=== PATIENT | male | born 1970 | race Caucasian/White ===

== ENCOUNTER 2016-07-29 10:21 | Inpatient (IN) | payer MEDICARE, MEDICAID ==
[~2016-07-29] VITALS: Ht 172.7 cm; Wt 80.5 kg
[~2016-07-29 10:21] MED LIST: GABA-531 PO; OLAN7.5T2 PO; VITAD1000 PO
[2016-07-29] MEDS ORDERED: LORazepam 2 MG TABLET PO PRN (11:30)
[2016-07-29] MEDS ORDERED: HALOPERIDOL 5 MG TABLET PO PRN (11:30)
[2016-07-29] MEDS ORDERED: ZOLPIDEM TARTRATE 10 MG TABLET PO PRN (11:30)
[2016-07-29 11:57] VITALS: BP 117/63
[2016-07-29] MEDS ORDERED: PNEUMOCOCCAL VACCINE POLYVALENT 0.5 ML VIAL [PPSV23] IM ONE (12:30)
[2016-07-29 13:18] VITALS: BP 114/68
[2016-07-29 16:10] VITALS: BP 102/62
[2016-07-29] MEDS: OLANZapine 10 MG TABLET PO SCH (21:05)
[2016-07-30 02:52] VITALS: BP 114/75
[2016-07-30 08:22] VITALS: BP 115/72
[2016-07-30] MEDS ORDERED: ALBUTEROL SULFATE HFA 90 MCG/PUFF 8 GM INHALER IH PRN (08:45)
[2016-07-30] MEDS ORDERED: PETROLATUM,WHITE 71 GM JELLY TP PRN (08:45)
[2016-07-30] MEDS ORDERED: DiphenhydrAMINE HCL 25 MG CAPSULE PO PRN (08:45)
[2016-07-30] MEDS ORDERED: CloNIDine HCL 0.1 MG TABLET PO PRN (08:45)
[2016-07-30] MEDS ORDERED: HYDROCORTISONE 0.5% 30 GM CREAM TP PRN (08:45)
[2016-07-30] MEDS ORDERED: MAGNESIUM HYDROXIDE SUSPENSION 30 ML UDCUP PO PRN (08:45)
[2016-07-30] MEDS ORDERED: ONDANSETRON HCL 4 MG TABLET PO PRN (08:45)
[2016-07-30] MEDS ORDERED: BACITRACIN 28.4 GM OINTMENT TP PRN (08:45)
[2016-07-30] MEDS ORDERED: IBUPROFEN 600 MG TABLET PO PRN (08:45)
[2016-07-30] MEDS ORDERED: ACETAMINOPHEN 325 MG TABLET PO PRN (08:45)
[2016-07-30] MEDS ORDERED: LOPERAMIDE HCL 2 MG CAPSULE PO PRN (08:45)
[2016-07-30] MEDS ORDERED: MAG HYDROX/AL HYDROX/SIMETH ES 30 ML SUSPENSION UDCUP PO PRN (08:45)
[2016-07-30] MEDS ORDERED: BENZOCAINE/MENTHOL LOZENGE MM PRN (08:45)
[2016-07-30 08:47] LABS: APPEARANCE,URINE CLEAR (CLEAR); GLUCOSE, URINE (UA) NEGATIVE (NEGATIVE); KETONES,URINE NEGATIVE (NEGATIVE); LEUKOCYTE ESTERASE ,URINE NEGATIVE (NEGATIVE); OCCULT BLOOD,URINE NEGATIVE (NEGATIVE); PH,URINE 5.5 (5.0-8.0); PROTEIN,URINE NEGATIVE (NEGATIVE)
[2016-07-30 08:48] LABS: ADD UA MICROSCOPIC NO
[2016-07-30] MEDS: FISH OIL/OMEGA-3 FATTY ACIDS 500 MG CAPSULE PO SCH (09:00)
[2016-07-30] MEDS: CHOLECALCIFEROL (VIT D3) 1,000 UNITS TABLET PO SCH (09:00)
[2016-07-30] MEDS: OLANZapine 10 MG TABLET PO SCH (20:48)
[2016-07-31 00:51] VITALS: BP 103/70
[2016-07-31 08:22] LABS: BASOPHILS % (AUTO) 0.5 % (0.0-2.0); EOSINOPHILS % (AUTO) 3.5 % (1.0-6.0); HEMATOCRIT 49.3 % (41-53); HEMOGLOBIN 16.5 g/dL (13.5-17.5); LYMPHOCYTES # (AUTO) 1.9 K/uL (1.0-4.8); LYMPHOCYTES % (AUTO) 29.1 % (22.0-44.0); MEAN CORPUSCULAR HEMOGLOBIN 31.1 pg (26.0-34.0); MEAN CORPUSCULAR HGB CONC 33.4 G/dL (31.0-37.0); MEAN CORPUSCULAR VOLUME 93 fL (80-100); MONOCYTES # (AUTO) 0.4 K/uL (0.1-1.0); MONOCYTES % (AUTO) 6.5 % (2.0-9.0); NEUTROPHILS # (AUTO) 3.9 K/uL (1.8-7.7); NEUTROPHILS % (AUTO) 60.4 % (40.0-70.0); PLATELET COUNT (AUTO) 316 K/uL (150-450); RED BLOOD CELL COUNT(AUTO) 5.29 MIL/uL (4.50-5.90); RED CELL DISTRIBUTION WIDTH 14.5 % (11.5-14.5); WHITE BLOOD COUNT (AUTO) 6.4 K/uL (4.5-11.0)
[2016-07-31 08:58] LABS: ALANINE AMINOTRANSFERASE 28 U/L (12-78); ALBUMIN 3.9 g/dL (3.4-5.0); ANION GAP 7 mmol/L (8-16); ASPARTATE AMINOTRANSFERASE 13 U/L (15-37); BILIRUBIN,TOTAL 0.2 mg/dL (0.1-1.0); CALCIUM, TOTAL 9.3 mg/dL (8.8-10.5); CARBON DIOXIDE 27 mmol/L (22-29); CHLORIDE 100 mmol/L (98-107); CHOL/HDL RATIO 4.5 (4.2-7.3); CREATININE 0.92 mg/dL (0.60-1.30); GLOMERULAR FILTR. RATE CALC > 60 mL/min (>60); POTASSIUM 4.8 mmol/L (3.5-5.1); SODIUM SERUM 134 mmol/L (136-145); THYROID STIMULATING HORMONE 1.44 uIU/mL (0.36-3.74); TOTAL PROTEIN, SERUM 7.2 g/dL (6.4-8.2); UREA NITROGEN, BLOOD 18 mg/dL (7-18)
[2016-07-31] MEDS: FISH OIL/OMEGA-3 FATTY ACIDS 500 MG CAPSULE PO SCH (09:04)
[2016-07-31] MEDS: CHOLECALCIFEROL (VIT D3) 1,000 UNITS TABLET PO SCH (09:04)
[2016-07-31 16:11] VITALS: BP 114/70
[2016-07-31] MEDS: OLANZapine 10 MG TABLET PO SCH (20:36)
[2016-08-01 01:24] VITALS: BP 110/80
[2016-08-01] MEDS: SODIUM CHLORIDE 1 GM TABLET PO SCH ×3 (08:17→16:52)
[2016-08-01] MEDS: FISH OIL/OMEGA-3 FATTY ACIDS 500 MG CAPSULE PO SCH (08:17)
[2016-08-01] MEDS: CHOLECALCIFEROL (VIT D3) 1,000 UNITS TABLET PO SCH (08:17)
[2016-08-01 16:15] VITALS: BP 117/64
[2016-08-01] MEDS: OLANZapine 10 MG TABLET PO SCH (20:52)
[2016-08-02 01:20] VITALS: BP 114/75
[2016-08-02 08:47] VITALS: BP 113/69
[2016-08-02] MEDS: SODIUM CHLORIDE 1 GM TABLET PO SCH ×3 (09:00→16:18)
[2016-08-02] MEDS: FISH OIL/OMEGA-3 FATTY ACIDS 500 MG CAPSULE PO SCH (09:02)
[2016-08-02] MEDS: CHOLECALCIFEROL (VIT D3) 1,000 UNITS TABLET PO SCH (09:02)
[2016-08-02 16:26] VITALS: BP 110/75
[2016-08-02] MEDS: OLANZapine 10 MG TABLET PO SCH (20:21)
[2016-08-03 04:21] VITALS: BP 112/86
[2016-08-03 08:10] VITALS: BP 113/67
[2016-08-03] MEDS: CHOLECALCIFEROL (VIT D3) 1,000 UNITS TABLET PO SCH (09:00)
[2016-08-03] MEDS: FISH OIL/OMEGA-3 FATTY ACIDS 500 MG CAPSULE PO SCH (09:00)
[2016-08-03] MEDS: SODIUM CHLORIDE 1 GM TABLET PO SCH ×3 (09:00→16:43)
[2016-08-03 16:15] VITALS: BP 109/73
[2016-08-03] MEDS ORDERED: OLAN10TA3 PO (19:45)
[2016-08-03] MEDS ORDERED: OMEG-12 PO (19:46)
[2016-08-03] MEDS ORDERED: NACL1 PO (19:47)
[2016-08-03] MEDS: OLANZapine 10 MG TABLET PO SCH (20:34)
[2016-08-04 00:33] VITALS: BP 101/64
[2016-08-04 05:09] VITALS: BP 106/81
== END 2016-08-04 05:10 | disposition home or self-care (01) | DRG 885 ==
LOC: B2X 11:26 → EDSTATUS 11:51 → B2X 20:46
DX: F25.1 Schizoaffective disorder, depressive type (principal); R45.851 Suicidal ideations; E87.1 Hypo-osmolality and hyponatremia; K21.9 Gastro-esophageal reflux disease without esophagitis; J44.9 Chronic obstructive pulmonary disease, unspecified; E78.5 Hyperlipidemia, unspecified; E55.9 Vitamin D deficiency, unspecified; F17.200 Nicotine dependence, unspecified, uncomplicated; G47.00 Insomnia, unspecified; F15.10 Other stimulant abuse, uncomplicated; F19.10 Other psychoactive substance abuse, uncomplicated; L29.9 Pruritus, unspecified; Z71.6 Tobacco abuse counseling; E78.1 Pure hyperglyceridemia; Z91.5 Personal history of self-harm; Z59.0 Homelessness; Z72.89 Other problems related to lifestyle; Z71.41 Alcohol abuse counseling and surveillance of alcoholic; Z71.51 Drug abuse counseling and surveillance of drug abuser; Z79.899 Other long term (current) drug therapy; Z28.21 Immunization not carried out because of patient refusal
CPT/HCPCS: 82306; 84443

== ENCOUNTER 2017-02-27 17:26 | Inpatient (IN) | payer MEDICARE, MEDICAID ==
[~2017-02-27] VITALS: Ht 175.3 cm; Wt 80.7 kg
[~2017-02-27 17:26] MED LIST changes: -GABA-531 PO; +NACL1 PO; +OLAN10TA3 PO; -OLAN7.5T2 PO; +OMEG-12 PO
[2017-02-27 18:33] LABS: BASOPHILS # (AUTO) 0.06 K/uL (0.00-0.20); EOSINOPHILS # (AUTO) 0.17 K/uL (0.00-0.70); EOSINOPHILS % (AUTO) 2.56 % (1.0-6.0); HEMATOCRIT 45.7 % (41-53); HEMOGLOBIN 15.4 g/dL (13.5-17.5); LYMPHOCYTES # (AUTO) 1.3 K/uL (1.0-4.8); MEAN CORPUSCULAR HEMOGLOBIN 30.5 pg (26.0-34.0); MEAN CORPUSCULAR HGB CONC 33.8 G/dL (31.0-37.0); MEAN CORPUSCULAR VOLUME 90 fL (80-100); MONOCYTES # (AUTO) 0.6 K/uL (0.1-1.0); MONOCYTES % (AUTO) 8.5 % (2.0-9.0); NEUTROPHILS # (AUTO) 4.5 K/uL (1.8-7.7); PLATELET COUNT (AUTO) 259 K/uL (150-450); RED BLOOD CELL COUNT(AUTO) 5.06 MIL/uL (4.50-5.90); RED CELL DISTRIBUTION WIDTH 13.6 % (11.5-14.5)
[2017-02-27 18:37] LABS: ANION GAP 8 mmol/L (8-16); CALCIUM, TOTAL 9.3 mg/dL (8.8-10.5); CARBON DIOXIDE 30 mmol/L (22-29); CHLORIDE 98 mmol/L (98-107); CREATININE 1.21 mg/dL (0.60-1.30); GLOMERULAR FILTR. RATE CALC > 60 mL/min (>60); GLUCOSE,RANDOM 101 mg/dL (70-110); POTASSIUM 3.8 mmol/L (3.5-5.1); SODIUM SERUM 136 mmol/L (136-145); UREA NITROGEN, BLOOD 17 mg/dL (7-18)
[2017-02-27 18:45] LABS: ALANINE AMINOTRANSFERASE 55 U/L (12-78); ALBUMIN 4.2 g/dL (3.4-5.0); ALKALINE PHOSPHATASE 51 U/L (46-116); ASPARTATE AMINOTRANSFERASE 35 U/L (15-37); BILIRUBIN,TOTAL 0.7 mg/dL (0.1-1.0); TOTAL PROTEIN, SERUM 7.9 g/dL (6.4-8.2)
[2017-02-27] MEDS ORDERED: LORazepam 2 MG TABLET PO PRN (22:15)
[2017-02-27] MEDS ORDERED: HALOPERIDOL 5 MG TABLET PO PRN (22:15)
[2017-02-27 22:16] VITALS: BP 103/65
[2017-02-27] MEDS ORDERED: INFLUENZA VIRUS VACCINE QVS 2017-18 (3YR+)/PF 60 MCG/0.5 ML SYRINGE IM ONE (22:30)
[2017-02-28 07:39] LABS: CHOL/HDL RATIO 4.8 (4.2-7.3)
[2017-02-28 08:15] VITALS: BP 108/61
[2017-02-28 16:00] VITALS: BP 109/56
[2017-02-28] MEDS: OLANZapine 10 MG TABLET PO SCH (20:54)
[2017-02-28] MEDS ORDERED: CloNIDine HCL 0.1 MG TABLET PO PRN (23:00)
[2017-02-28] MEDS ORDERED: PETROLATUM,WHITE 71 GM JELLY TP PRN (23:00)
[2017-02-28] MEDS ORDERED: LOPERAMIDE HCL 2 MG CAPSULE PO PRN (23:00)
[2017-02-28] MEDS ORDERED: ACETAMINOPHEN 325 MG TABLET PO PRN (23:00)
[2017-02-28] MEDS ORDERED: MAG HYDROX/AL HYDROX/SIMETH ES 30 ML SUSPENSION UDCUP PO PRN (23:00)
[2017-02-28] MEDS ORDERED: ONDANSETRON HCL 4 MG TABLET PO PRN (23:00)
[2017-02-28] MEDS ORDERED: IBUPROFEN 600 MG TABLET PO PRN (23:00)
[2017-02-28] MEDS ORDERED: BACITRACIN 28.4 GM OINTMENT TP PRN (23:00)
[2017-02-28] MEDS ORDERED: MAGNESIUM HYDROXIDE SUSPENSION 30 ML UDCUP PO PRN (23:00)
[2017-02-28] MEDS ORDERED: ALBUTEROL SULFATE HFA 90 MCG/PUFF 8 GM INHALER IH PRN (23:00)
[2017-02-28] MEDS ORDERED: BENZOCAINE/MENTHOL LOZENGE [8 LOZENGES/PACKET] MM PRN (23:15)
[2017-03-01 00:50] VITALS: BP 106/73
[2017-03-01] MEDS: ZOLPIDEM TARTRATE 10 MG TABLET PO PRN (00:50)
[2017-03-01] MEDS: OMEPRAZOLE 20 MG CAPSULE PO SCH (09:00)
[2017-03-01] MEDS: DOCUSATE SODIUM 100 MG CAPSULE PO SCH (09:00)
[2017-03-01] MEDS: OLANZapine 10 MG TABLET PO SCH (22:11)
[2017-03-02 02:00] VITALS: BP 114/91
[2017-03-02] MEDS: ZOLPIDEM TARTRATE 10 MG TABLET PO PRN ×2 (02:01→21:31)
[2017-03-02] MEDS: OMEPRAZOLE 20 MG CAPSULE PO SCH (08:26)
[2017-03-02] MEDS: DOCUSATE SODIUM 100 MG CAPSULE PO SCH (08:26)
[2017-03-02] MEDS: OLANZapine 10 MG TABLET PO SCH (20:22)
[2017-03-02 20:42] VITALS: BP 95/59
[2017-03-03] MEDS: DOCUSATE SODIUM 100 MG CAPSULE PO SCH (08:58)
[2017-03-03] MEDS: OMEPRAZOLE 20 MG CAPSULE PO SCH (08:59)
[2017-03-03] MEDS: OLANZapine 10 MG TABLET PO SCH (20:15)
[2017-03-04 02:04] VITALS: BP 134/71
[2017-03-04] MEDS: ZOLPIDEM TARTRATE 10 MG TABLET PO PRN (02:04)
[2017-03-04] MEDS: OMEPRAZOLE 20 MG CAPSULE PO SCH (09:00)
[2017-03-04] MEDS: DOCUSATE SODIUM 100 MG CAPSULE PO SCH (09:00)
[2017-03-04] MEDS: OLANZapine 10 MG TABLET PO SCH (20:13)
[2017-03-05] MEDS: ZOLPIDEM TARTRATE 10 MG TABLET PO PRN (02:50)
[2017-03-05 02:53] VITALS: BP 122/71
[2017-03-05] MEDS: DOCUSATE SODIUM 100 MG CAPSULE PO SCH (09:00)
[2017-03-05] MEDS: OMEPRAZOLE 20 MG CAPSULE PO SCH (09:00)
[2017-03-05] MEDS ORDERED: OMEP20 PO (14:29)
[2017-03-05] MEDS ORDERED: DSS100 PO (14:29)
== END 2017-03-05 15:45 | disposition home or self-care (01) | DRG 885 ==
LOC: EMS 17:27 → 3EX 21:30
DX: F25.1 Schizoaffective disorder, depressive type (principal); R45.851 Suicidal ideations; Z59.0 Homelessness; E55.9 Vitamin D deficiency, unspecified; E78.1 Pure hyperglyceridemia; E78.5 Hyperlipidemia, unspecified; J44.9 Chronic obstructive pulmonary disease, unspecified; K21.9 Gastro-esophageal reflux disease without esophagitis; F31.9 Bipolar disorder, unspecified; F15.10 Other stimulant abuse, uncomplicated; G47.00 Insomnia, unspecified; K59.00 Constipation, unspecified; F17.210 Nicotine dependence, cigarettes, uncomplicated; Z91.14 Patient's other noncompliance with medication regimen; Z91.5 Personal history of self-harm; Z79.899 Other long term (current) drug therapy
CPT/HCPCS: 99285; G0480

== ENCOUNTER 2017-04-16 08:44 | Inpatient (IN) | payer MEDICARE, MEDICAID ==
[~2017-04-16] VITALS: Ht 175.3 cm; Wt 81.6 kg
[~2017-04-16 08:44] MED LIST changes: +DSS100 PO; -NACL1 PO; -OMEG-12 PO; +OMEP20 PO; -VITAD1000 PO
[2017-04-16 09:59] VITALS: BP 110/61
[2017-04-16] MEDS ORDERED: ZOLPIDEM TARTRATE 10 MG TABLET PO PRN (11:00)
[2017-04-16] MEDS ORDERED: LORazepam 2 MG TABLET PO PRN (11:00)
[2017-04-16 12:40] VITALS: BP 109/60
[2017-04-16 13:31] VITALS: BP 109/60
[2017-04-16 16:14] VITALS: BP 115/61
[2017-04-16] MEDS: OLANZapine 10 MG TABLET PO SCH (20:41)
[2017-04-17] VITALS: BP 116/74
[2017-04-17 08:30] VITALS: BP 121/75
[2017-04-17] MEDS: NICOTINE 14 MG/24 HOUR PATCH TD SCH (09:00)
[2017-04-17] MEDS ORDERED: ONDANSETRON HCL 4 MG TABLET PO PRN (09:00)
[2017-04-17] MEDS ORDERED: BACITRACIN 28.4 GM OINTMENT TP PRN (09:00)
[2017-04-17] MEDS ORDERED: MAGNESIUM HYDROXIDE SUSPENSION 30 ML UDCUP PO PRN (09:00)
[2017-04-17] MEDS ORDERED: LOPERAMIDE HCL 2 MG CAPSULE PO PRN (09:00)
[2017-04-17] MEDS ORDERED: IBUPROFEN 600 MG TABLET PO PRN (09:00)
[2017-04-17] MEDS ORDERED: ALBUTEROL SULFATE HFA 90 MCG/PUFF 8 GM INHALER IH PRN (09:00)
[2017-04-17] MEDS ORDERED: MAG HYDROX/AL HYDROX/SIMETH ES 30 ML SUSPENSION UDCUP PO PRN (09:00)
[2017-04-17] MEDS ORDERED: DiphenhydrAMINE HCL 25 MG CAPSULE PO PRN (09:00)
[2017-04-17] MEDS ORDERED: MINERAL OIL/PETROLATUM 120 GM CREAM TP PRN (09:00)
[2017-04-17] MEDS ORDERED: PETROLATUM,WHITE 71 GM JELLY TP PRN (09:00)
[2017-04-17] MEDS ORDERED: CloNIDine HCL 0.1 MG TABLET PO PRN (09:00)
[2017-04-17] MEDS ORDERED: ACETAMINOPHEN 325 MG TABLET PO PRN (09:00)
[2017-04-17] MEDS ORDERED: BENZOCAINE/MENTHOL LOZENGE MM PRN (09:00)
[2017-04-17 17:32] VITALS: BP 107/63
[2017-04-17] MEDS: OLANZapine 10 MG TABLET PO SCH (20:33)
[2017-04-18 01:52] VITALS: BP 105/69
[2017-04-18 08:20] VITALS: BP 104/71
[2017-04-18] MEDS: NICOTINE 14 MG/24 HOUR PATCH TD SCH (09:00)
[2017-04-18 16:22] VITALS: BP 106/62
[2017-04-18] MEDS: OLANZapine 10 MG TABLET PO SCH (20:22)
[2017-04-19] MEDS: NICOTINE 14 MG/24 HOUR PATCH TD SCH (08:57)
== END 2017-04-19 16:05 | disposition home or self-care (01) | DRG 885 ==
LOC: B2X 11:42
DX: F25.1 Schizoaffective disorder, depressive type (principal); R45.851 Suicidal ideations; F29 Unspecified psychosis not due to a substance or known physiological condition; E55.9 Vitamin D deficiency, unspecified; E78.5 Hyperlipidemia, unspecified; F15.10 Other stimulant abuse, uncomplicated; F32.9 Major depressive disorder, single episode, unspecified; F41.9 Anxiety disorder, unspecified; G47.00 Insomnia, unspecified; J44.9 Chronic obstructive pulmonary disease, unspecified; K21.9 Gastro-esophageal reflux disease without esophagitis; F17.200 Nicotine dependence, unspecified, uncomplicated; T23.009A Burn of unspecified degree of unspecified hand, unspecified site, initial encounter; X08.8XXA Exposure to other specified smoke, fire and flames, initial encounter; Z59.0 Homelessness; Y93.89 Activity, other specified; Y92.89 Other specified places as the place of occurrence of the external cause

== ENCOUNTER 2019-10-07 14:26 | Inpatient (IN) | payer MEDICARE, MEDICAID ==
[~2019-10-07] VITALS: Ht 175.3 cm; Wt 94.3 kg
[~2019-10-07 14:26] MED LIST changes: -DSS100 PO; -OMEP20 PO
[2019-10-07] MEDS ORDERED: QUET100T PO (14:32)
[2019-10-07] MEDS ORDERED: LORazepam 1 MG TABLET PO ONE (16:30)
[2019-10-07] MEDS ORDERED: QUEtiapine FUMARATE 100 MG TABLET PO ONE (16:30)
[2019-10-07 16:32] LABS: BASOPHILS % (AUTO) 0.7 % (0.0-2.0); EOSINOPHILS % (AUTO) 4.2 % (1.0-6.0); HEMATOCRIT 45.6 % (41-53); HEMOGLOBIN 15.1 g/dL (13.5-17.5); LYMPHOCYTES # (AUTO) 1.9 K/uL (1.0-4.8); LYMPHOCYTES % (AUTO) 32.1 % (22.0-44.0); MEAN CORPUSCULAR HEMOGLOBIN 29.5 pg (26.0-34.0); MEAN CORPUSCULAR HGB CONC 33.1 G/dL (31.0-37.0); MEAN CORPUSCULAR VOLUME 89 fL (80-100); MONOCYTES # (AUTO) 0.7 K/uL (0.1-1.0); MONOCYTES % (AUTO) 11.6 % (2.0-9.0); NEUTROPHILS % (AUTO) 51.4 % (40.0-70.0); PLATELET COUNT (AUTO) 240 K/uL (150-450); RED BLOOD CELL COUNT(AUTO) 5.12 MIL/uL (4.50-5.90); RED CELL DISTRIBUTION WIDTH 14.1 % (11.5-14.5)
[2019-10-07 16:39] LABS: ANION GAP 8 mmol/L (8-16); CALCIUM, TOTAL 9.5 mg/dL (8.8-10.5); CARBON DIOXIDE 27 mmol/L (22-29); CHLORIDE 102 mmol/L (98-107); CREATININE 1.21 mg/dL (0.60-1.30); GLOMERULAR FILTR. RATE CALC > 60 mL/min (>60); GLUCOSE,RANDOM 84 mg/dL (70-110); POTASSIUM 3.9 mmol/L (3.5-5.1); SODIUM SERUM 137 mmol/L (136-145); UREA NITROGEN, BLOOD 21 mg/dL (7-18)
[2019-10-07 16:45] LABS: ALANINE AMINOTRANSFERASE 44 U/L (12-78); ALBUMIN 4.5 g/dL (3.4-5.0); ALKALINE PHOSPHATASE 54 U/L (46-116); ASPARTATE AMINOTRANSFERASE 24 U/L (15-37); BILIRUBIN,TOTAL 0.6 mg/dL (0.1-1.0); TOTAL PROTEIN, SERUM 8.4 g/dL (6.4-8.2)
[2019-10-07] MEDS ORDERED: OLAN7.5T2 PO (16:48)
[2019-10-07] MEDS ORDERED: ChlorproMAZINE HCL 100 MG TABLET PO PRN (18:15)
[2019-10-07] MEDS ORDERED: LORazepam 1 MG TABLET PO PRN (18:15)
[2019-10-07] MEDS ORDERED: ZOLPIDEM TARTRATE 5 MG TABLET PO PRN (18:15)
[2019-10-07] MEDS: QUEtiapine FUMARATE 300 MG TABLET PO SCH (20:21)
[2019-10-07 20:53] VITALS: BP 122/82
[2019-10-08] MEDS ORDERED: ONDANSETRON HCL 4 MG TABLET PO PRN (06:45)
[2019-10-08] MEDS ORDERED: BENZOCAINE/MENTHOL LOZENGE MM PRN (06:45)
[2019-10-08] MEDS ORDERED: CloNIDine HCL 0.1 MG TABLET PO PRN (06:45)
[2019-10-08] MEDS ORDERED: BACITRACIN 28.4 GM OINTMENT TP PRN (06:45)
[2019-10-08] MEDS ORDERED: LOPERAMIDE HCL 2 MG CAPSULE PO PRN (06:45)
[2019-10-08] MEDS ORDERED: OMEPRAZOLE 20 MG CAPSULE PO PRN (06:45)
[2019-10-08] MEDS ORDERED: ACETAMINOPHEN 325 MG TABLET PO PRN (06:45)
[2019-10-08] MEDS ORDERED: DOCUSATE SODIUM 100 MG CAPSULE PO PRN (06:45)
[2019-10-08] MEDS ORDERED: ALBUTEROL SULFATE HFA 90 MCG/PUFF 8 GM INHALER IH PRN (06:45)
[2019-10-08] MEDS ORDERED: PETROLATUM,WHITE 28 GM JELLY TP PRN (06:45)
[2019-10-08] MEDS ORDERED: MAGNESIUM HYDROXIDE SUSPENSION 30 ML UDCUP PO PRN (06:45)
[2019-10-08] MEDS ORDERED: IBUPROFEN 600 MG TABLET PO PRN (06:45)
[2019-10-08] MEDS ORDERED: MAG HYDROX/AL HYDROX/SIMETH ES 30 ML SUSPENSION UDCUP PO PRN (06:45)
[2019-10-08] MEDS: QUEtiapine FUMARATE 25 MG TABLET PO SCH ×3 (07:54→16:10)
[2019-10-08 09:55] VITALS: BP 98/62
[2019-10-08 16:42] VITALS: BP 120/78
[2019-10-08] MEDS: QUEtiapine FUMARATE 300 MG TABLET PO SCH (20:15)
[2019-10-09] VITALS: BP 124/75
[2019-10-09] MEDS: QUEtiapine FUMARATE 25 MG TABLET PO SCH ×3 (08:05→16:09)
[2019-10-09 10:22] VITALS: BP 112/78
[2019-10-09 16:25] VITALS: BP 121/75
[2019-10-09] MEDS: QUEtiapine FUMARATE 300 MG TABLET PO SCH (20:22)
[2019-10-09] MEDS: GABAPENTIN 400 MG CAPSULE PO SCH (20:22)
[2019-10-10] MEDS: GABAPENTIN 400 MG CAPSULE PO SCH ×4 (08:08→20:46)
[2019-10-10] MEDS: QUEtiapine FUMARATE 25 MG TABLET PO SCH ×3 (08:08→16:30)
[2019-10-10 09:30] VITALS: BP 113/76
[2019-10-10] MEDS ORDERED: QUEtiapine FUMARATE 100 MG TABLET PO PRN (10:00)
[2019-10-10] MEDS ORDERED: GuaiFENesin/D-METHORPHAN [SUGAR-FREE] 200-20MG/10 ML SYRUP UDCUP PO PRN (10:00)
[2019-10-10] MEDS ORDERED: MAG HYDROX/AL HYDROX/SIMETH ES 30 ML SUSPENSION UDCUP PO PRN (10:00)
[2019-10-10] MEDS ORDERED: LOPERAMIDE HCL 2 MG CAPSULE PO PRN (10:00)
[2019-10-10] MEDS ORDERED: MAGNESIUM HYDROXIDE SUSPENSION 30 ML UDCUP PO PRN (10:00)
[2019-10-10] MEDS ORDERED: HydrOXYzine PAMOATE 50 MG CAPSULE PO PRN (10:00)
[2019-10-10] MEDS ORDERED: TUBERCULIN, PURIFIED PROTEIN DERIVATIVE 5 TU/0.1 ML SYRINGE ID ONE (10:00)
[2019-10-10] MEDS ORDERED: ACETAMINOPHEN 325 MG TABLET PO PRN (10:00)
[2019-10-10] MEDS ORDERED: PROMETHAZINE HCL 25 MG TABLET PO PRN (10:00)
[2019-10-10] MEDS: THIAMINE 100 MG TABLET PO SCH (16:30)
[2019-10-10 16:37] VITALS: BP 123/85
[2019-10-10] MEDS: QUEtiapine FUMARATE 300 MG TABLET PO SCH (20:46)
[2019-10-11 03:00] VITALS: BP 110/67
[2019-10-11] MEDS: QUEtiapine FUMARATE 25 MG TABLET PO SCH ×3 (07:59→16:26)
[2019-10-11] MEDS: MULTIVITAMINS WITH MINERALS, THERAPEUTIC TABLET PO SCH (07:59)
[2019-10-11] MEDS: GABAPENTIN 400 MG CAPSULE PO SCH ×4 (07:59→20:14)
[2019-10-11] MEDS: THIAMINE 100 MG TABLET PO SCH ×2 (07:59→16:27)
[2019-10-11] MEDS: FOLIC ACID 1 MG TABLET PO SCH (07:59)
[2019-10-11 09:00] VITALS: BP 93/59
[2019-10-11] MEDS ORDERED: NALTREXONE HCL 50 MG TABLET PO SCH (09:00)
[2019-10-11] MEDS: NALTREXONE HCL 50 MG TABLET PO SCH (13:25)
[2019-10-11 16:54] VITALS: BP 92/55
[2019-10-11] MEDS: QUEtiapine FUMARATE 300 MG TABLET PO SCH (20:14)
[2019-10-12 08:00] VITALS: BP 104/70
[2019-10-12] MEDS: MULTIVITAMINS WITH MINERALS, THERAPEUTIC TABLET PO SCH (08:37)
[2019-10-12] MEDS: GABAPENTIN 400 MG CAPSULE PO SCH ×3 (08:37→16:41)
[2019-10-12] MEDS: THIAMINE 100 MG TABLET PO SCH ×2 (08:38→16:43)
[2019-10-12] MEDS: FOLIC ACID 1 MG TABLET PO SCH (08:38)
[2019-10-12] MEDS: QUEtiapine FUMARATE 25 MG TABLET PO SCH ×3 (08:38→16:41)
[2019-10-12] MEDS: NALTREXONE HCL 50 MG TABLET PO SCH (08:39)
[2019-10-12 16:39] VITALS: BP 120/78
[2019-10-12] MEDS: QUEtiapine FUMARATE 200 MG TABLET PO SCH (20:16)
[2019-10-12] MEDS: GABAPENTIN 300 MG CAPSULE PO SCH (20:17)
[2019-10-13] MEDS: MULTIVITAMINS WITH MINERALS, THERAPEUTIC TABLET PO SCH (08:14)
[2019-10-13] MEDS: QUEtiapine FUMARATE 25 MG TABLET PO SCH ×3 (08:14→16:14)
[2019-10-13] MEDS: GABAPENTIN 300 MG CAPSULE PO SCH ×3 (08:14→16:14)
[2019-10-13] MEDS: FOLIC ACID 1 MG TABLET PO SCH (08:15)
[2019-10-13] MEDS: NALTREXONE HCL 50 MG TABLET PO SCH (08:15)
[2019-10-13] MEDS: THIAMINE 100 MG TABLET PO SCH ×2 (08:16→16:14)
[2019-10-13 09:58] VITALS: BP 98/54
[2019-10-13 16:44] VITALS: BP 121/77
[2019-10-13] MEDS: GABAPENTIN 400 MG CAPSULE PO SCH (20:08)
[2019-10-13] MEDS: QUEtiapine FUMARATE 200 MG TABLET PO SCH (20:08)
[2019-10-14] MEDS: NALTREXONE HCL 50 MG TABLET PO SCH (07:59)
[2019-10-14] MEDS: THIAMINE 100 MG TABLET PO SCH ×2 (07:59→16:41)
[2019-10-14] MEDS: FOLIC ACID 1 MG TABLET PO SCH (07:59)
[2019-10-14 08:00] VITALS: BP 102/75
[2019-10-14] MEDS: MULTIVITAMINS WITH MINERALS, THERAPEUTIC TABLET PO SCH (08:00)
[2019-10-14] MEDS: GABAPENTIN 400 MG CAPSULE PO SCH ×4 (08:00→21:04)
[2019-10-14] MEDS: QUEtiapine FUMARATE 25 MG TABLET PO SCH ×3 (08:00→16:41)
[2019-10-14 18:31] VITALS: BP 129/79
[2019-10-14] MEDS: QUEtiapine FUMARATE 200 MG TABLET PO SCH (21:50)
[2019-10-15] MEDS: MULTIVITAMINS WITH MINERALS, THERAPEUTIC TABLET PO SCH (08:16)
[2019-10-15] MEDS: THIAMINE 100 MG TABLET PO SCH ×2 (08:16→17:00)
[2019-10-15] MEDS: GABAPENTIN 400 MG CAPSULE PO SCH ×4 (08:16→21:43)
[2019-10-15] MEDS: FOLIC ACID 1 MG TABLET PO SCH (08:17)
[2019-10-15] MEDS: NALTREXONE HCL 50 MG TABLET PO SCH (08:17)
[2019-10-15 09:00] VITALS: BP 106/69
[2019-10-15 16:43] VITALS: BP 154/76
[2019-10-15] MEDS: QUEtiapine FUMARATE 200 MG TABLET PO SCH (21:43)
[2019-10-16] MEDS: MULTIVITAMINS WITH MINERALS, THERAPEUTIC TABLET PO SCH (09:07)
[2019-10-16] MEDS: FOLIC ACID 1 MG TABLET PO SCH (09:07)
[2019-10-16] MEDS: GABAPENTIN 400 MG CAPSULE PO SCH ×4 (09:07→20:19)
[2019-10-16] MEDS: THIAMINE 100 MG TABLET PO SCH ×2 (09:07→16:16)
[2019-10-16] MEDS: NALTREXONE HCL 50 MG TABLET PO SCH (09:08)
[2019-10-16 09:53] VITALS: BP 120/77
[2019-10-16 16:17] VITALS: BP 126/84
[2019-10-16] MEDS: QUEtiapine FUMARATE 200 MG TABLET PO SCH (20:19)
[2019-10-17 08:00] VITALS: BP 106/68
[2019-10-17] MEDS: NALTREXONE HCL 50 MG TABLET PO SCH (08:53)
[2019-10-17] MEDS: MULTIVITAMINS WITH MINERALS, THERAPEUTIC TABLET PO SCH (08:53)
[2019-10-17] MEDS: FOLIC ACID 1 MG TABLET PO SCH (08:53)
[2019-10-17] MEDS: GABAPENTIN 400 MG CAPSULE PO SCH ×4 (08:54→20:27)
[2019-10-17] MEDS: THIAMINE 100 MG TABLET PO SCH ×2 (08:57→16:34)
[2019-10-17 16:27] VITALS: BP 112/75
[2019-10-17] MEDS ORDERED: NALT50TA PO (20:23)
[2019-10-17] MEDS ORDERED: GABA-1201 PO (20:23)
[2019-10-17] MEDS ORDERED: QUET200T29 PO (20:23)
[2019-10-17] MEDS: QUEtiapine FUMARATE 200 MG TABLET PO SCH (20:27)
[2019-10-18 00:50] VITALS: BP 114/76
[2019-10-18] MEDS: NALTREXONE HCL 50 MG TABLET PO SCH (07:40)
[2019-10-18] MEDS: MULTIVITAMINS WITH MINERALS, THERAPEUTIC TABLET PO SCH (07:40)
[2019-10-18] MEDS: FOLIC ACID 1 MG TABLET PO SCH (07:40)
[2019-10-18] MEDS: GABAPENTIN 400 MG CAPSULE PO SCH (07:40)
[2019-10-18] MEDS: THIAMINE 100 MG TABLET PO SCH (07:41)
== END 2019-10-18 10:30 | disposition home or self-care (01) | DRG 885 ==
LOC: EMS 14:30 → 3EX 18:05 → UNDOADMIN 18:56 → 3EX 18:56
PROVIDERS: ADMIT Psychiatry & Neurology Psychiatry; ATTEND Psychiatry & Neurology Psychiatry
DX: F25.1 Schizoaffective disorder, depressive type (principal); R45.851 Suicidal ideations; E78.00 Pure hypercholesterolemia, unspecified; G47.00 Insomnia, unspecified; K59.00 Constipation, unspecified; F41.9 Anxiety disorder, unspecified; E78.5 Hyperlipidemia, unspecified; F17.210 Nicotine dependence, cigarettes, uncomplicated; K21.9 Gastro-esophageal reflux disease without esophagitis; J44.9 Chronic obstructive pulmonary disease, unspecified; F19.10 Other psychoactive substance abuse, uncomplicated; Z59.0 Homelessness; Z91.14 Patient's other noncompliance with medication regimen; Z56.0 Unemployment, unspecified
CPT/HCPCS: 93005; G0378; G0480